=== PATIENT | female | born 1940 | race African-American/Black ===

== ENCOUNTER 2017-07-20 18:55 | Inpatient (IN) | payer OTHER ==
[~2017-07-20] VITALS: Ht 165.1 cm; Wt 55.8 kg
[~2017-07-20 18:55] MED LIST: AMLODIPINE BESY10 MG PO; ASPIRIN EC81 M1 PO; DEPAKOTE SPRIN125 MG PO; DIAZEPAM5 MG/5 ML PO; DILANTIN 100 M100 MG PO; HYDRALAZINE 2525 M1 PO; KEPPRA 100100 MG/ML PER TUBE; LASIX 40 MG TAB40 M2 PO; LIPITOR10 MG PO; PHENYTOIN125 MG/5 M PO; ROCEPHIN 11 GM/1001 IV; SINEMET 25-1001 EAC1 PO; TYLENOL EX-STR500 M2 PO; VITAMIN D 5050000 I1 PO; ZOCOR 20 MG TAB20 M1 PO
[2017-07-20 18:57] VITALS: BP 157/80
[2017-07-20 19:49] LABS: RBC 2.29 mil/uL (4.20-5.00); WBC 11.7 thou/uL (4.0-11.0)
[2017-07-20 19:51] LABS: HEMATOCRIT 20.1 % (37.0-47.0); MCH 27.5 pg (26.0-34.0); MCHC 31.2 g/dL (28.0-37.0); MCV 88.1 fL (80.0-100.0); PLATELET COUNT 325 thou/uL (150-400); RDW 16.9 % (10.5-14.5)
[2017-07-20 19:53] LABS: HEMOGLOBIN 6.3 gm/dL (12.0-15.0)
[2017-07-20 19:55] LABS: CALCIUM 8.2 mg/dL (8.5-10.1); CREATININE 0.7 mg/dL (0.6-1.0); POTASSIUM 4.2 mmol/L (3.5-5.1)
[2017-07-20 20:22] LABS: ABSOLUTE NEUTROPHILS 9.4 thou/uL (1.4-8.2)
[2017-07-20 20:40] LABS: APTT 25.8 Seconds (24.5-32.8); INR 1.2; PROTIME 12.3 Seconds (9.3-11.4)
[2017-07-20] MEDS ORDERED: VITAMIN D1000 UNI1 PO (21:07)
[2017-07-20 22:18] VITALS: BP 176/83
[2017-07-20 22:58] VITALS: BP 176/83
[2017-07-20 23:45] VITALS: BP 176/83
[2017-07-21] VITALS (8 sets, daily range): BP systolic 148–203; BP diastolic 86–111
[2017-07-21 04:31] LABS: URINE BILIRUBIN NEGATIVE (Negative); URINE BLOOD NEGATIVE (Negative); URINE CLARITY CLEAR; URINE COLOR YELLOW; URINE GLUCOSE-RANDOM* NEGATIVE (Negative); URINE KETONES NEGATIVE (Negative); URINE LEUKOCYTES-REFLEX NEGATIVE (Negative); URINE NITRITE-REFLEX NEGATIVE (Negative); URINE PROTEIN (DIPSTICK) TRACE (Negative); URINE UROBILINOGEN 0.2 E.U./dl (0.2-1.0)
[2017-07-21 09:53] LABS: HEMATOCRIT 31.9 % (37.0-47.0); MCH 28.3 pg (26.0-34.0); MCHC 32.8 g/dL (28.0-37.0); MCV 86.4 fL (80.0-100.0); RBC 3.69 mil/uL (4.20-5.00); RDW 16.5 % (10.5-14.5); WBC 17.2 thou/uL (4.0-11.0)
[2017-07-21 09:56] LABS: HEMOGLOBIN 10.5 gm/dL (12.0-15.0)
[2017-07-22 04:20] VITALS: BP 176/116
[2017-07-22 07:00] LABS: HEMATOCRIT 31.6 % (37.0-47.0); HEMOGLOBIN 10.3 gm/dL (12.0-15.0); MCH 28.5 pg (26.0-34.0); MCHC 32.7 g/dL (28.0-37.0); MCV 87.4 fL (80.0-100.0); RBC 3.62 mil/uL (4.20-5.00); RDW 16.4 % (10.5-14.5)
[2017-07-22 07:20] VITALS: BP 204/110
[2017-07-22] MEDS ORDERED: METOPROLOL SUCC25 M1 PO (14:13)
[2017-07-22 15:20] VITALS: BP 172/119; BP 196/65
== END 2017-07-22 18:45 | disposition hospice, inpatient (51) | DRG 812 ==
LOC: ER 18:55 → EROBS 20:14 → 3W 20:14 → 4E 07-21 13:26
PROVIDERS: Emergency Medicine; Internal Medicine
DX: D62 Acute posthemorrhagic anemia (principal); Z66 Do not resuscitate; Z51.5 Encounter for palliative care; I10 Essential (primary) hypertension; G40.409 Other generalized epilepsy and epileptic syndromes, not intractable, without status epilepticus; G20 Parkinson's disease; F02.80 Dementia in other diseases classified elsewhere, unspecified severity, without behavioral disturbance, psychotic disturbance, mood disturbance, and anxiety; M19.90 Unspecified osteoarthritis, unspecified site; F79 Unspecified intellectual disabilities; Z86.718 Personal history of other venous thrombosis and embolism; Z79.899 Other long term (current) drug therapy; Z82.49 Family history of ischemic heart disease and other diseases of the circulatory system; Z82.0 Family history of epilepsy and other diseases of the nervous system
CPT/HCPCS: 10080; 10084